=== PATIENT | male | born 1960 | race Caucasian/White ===

== ENCOUNTER 2016-08-06 17:06 | Observation (INO) | payer MEDICAID ==
[2016-08-06] MEDS ORDERED: LIDOCAINE 5% PATCH TOP ONE (17:26)
[2016-08-06] MEDS ORDERED: ONDANSETRON HCL IV 4 MG/2 ML VIAL IVP ONE (17:27)
--- NOTE | 2016-08-06 17:30 | Emergency Department Record ---
History of Present Illness - General Chief Complaint: Fall Injury Stated Complaint: FALL Source: Patient Mode of Arrival: Ambulatory Limitations: No limitations - History of Present Illness Initial Comments: 56 yo male presents to ED with a CC of left sided chest pain symptoms that began 3 days ago following a slip and fall while putting salt on his driveway. Patient reports that he coughed last night which significantly worsened his pain symptoms. Patient denies fevers, chills, or recent illness, and does not take anticoagulation medications other than baby aspirin daily. Patient does report a history of COPD. MD Complaint: Fall Onset/Timin -: Days(s) Fall From: Standing When Fall Occurred: # Days CLAIM AGENT Fall Witnessed: No Place Fall Occurred: Home Loss of Consciousness: None Prolonged Down Time?: Yes Symptoms Prior to Fall: None Location: Chest, Back Severity scale (1-10): 7 Quality: Sharp Context: Tripped/slipped Associated Symptoms: Other - [place] Coma Scale Eye Response: (4) Open spontaneously Motor Response: (6) Obeys commands Verbal Response: (5) Oriented [place] Total: 15 - Related Data Allergies Allergy/AdvReac Type Severity Reaction Status Date / Time hydrocodone bitartrate Allergy Severe ITCHING Verified 08/06/16 17:18 [From [place]] penicillin V Allergy Intermediate HIVES Verified 08/06/16 17:18 shellfish derived Allergy Intermediate HIVES Verified 08/06/16 17:18 bacitracin Allergy PT UNSURE Verified 08/06/16 17:18 [From Triple Antibiotic] OF REACTION bacitracin zinc Allergy PT UNSURE Verified 08/06/16 17:18 [From Triple Antibiotic] OF REACTION neomycin sulfate Allergy PT UNSURE Verified 08/06/16 17:18 [From Triple Antibiotic] OF REACTION polymyxin B Allergy PT UNSURE Verified 08/06/16 17:18 [From Triple Antibiotic] OF REACTION polymyxin B sulfate Allergy PT UNSURE Verified 08/06/16 17:18 [From Triple Antibiotic] OF REACTION Travel Screening - Travel/Exposure Within Last 30 Days Have you traveled within the last 30 days?: No - Travel/Exposure Within Last Year Have you traveled outside the [place] in the last year?: No - Additonal Travel Details Have you been exposed to anyone with a communicable illness?: No - Travel Symptoms Symptom Screening: None Review of Systems Constitutional: Denies: Chills, Fever, Malaise, Night sweats Eyes: Denies: Eye discharge, Eye pain ENT: Denies: Congestion, Ear pain, Epistaxis Respiratory: Reports: Cough. Denies: Dyspnea Cardiovascular: Reports: Chest pain (with deep inspiration). Denies: Palpitations, Paroxysmal nocturnal dyspnea Endocrine: Denies: Fatigue, Heat or cold intolerance Gastrointestinal: Denies: Abdominal pain, Nausea, Vomiting Genitourinary: Denies: Incontinence, Retention Musculoskeletal: Reports: Back pain. Denies: Arthralgia, Gout, Joint swelling Skin: Denies: Bruising, Change in color Neurological: Denies: Abnormal gait, Confusion, Headache, Tingling Psychiatric: Denies: Anxiety Hematological/Lymphatic: Denies: Anemia, Blood Clots Past Medical History - SOCIAL HISTORY Smoking Status: Current every day smoker Alcohol Use: Occassional Drug Use: None - RESPIRATORY Hx Respiratory Disorders: Yes Hx COPD: Yes - CARDIOVASCULAR Hx Cardio Disorders: No - NEURO Hx Neuro Disorders: No - GI Hx GI Disorders: No - Hx Genitourinary Disorders: No - ENDOCRINE Hx Endocrine Disorders: No - MUSCULOSKELETAL Hx Musculoskeletal Disorders: No - PSYCH Hx Psych Problems: No - HEMATOLOGY/ONCOLOGY Hx Hematology/Oncology Disorders: No Family Medical History Any Significant Family History?: No Physical Exam - General General Appearance: Alert, Oriented x3, Cooperative, Moderate distress Limitations: No limitations - Head Head exam: Atraumatic, Normocephalic, Normal inspection Head exam detail: negative: Abrasion, Contusion, Parisi's sign, General tenderness, Hematoma, Laceration - Eye Eye exam: Normal appearance. negative: Conjunctival injection, Periorbital swelling, Periorbital tenderness, Scleral icterus - ENT Ear exam: negative: Auricular hematoma, Auricular trauma Nasal Exam: negative: Active bleeding, Discharge, Dried blood, Foreign body Mouth exam: negative: Drooling, Laceration, Muffled voice, Tongue elevation - Neck Neck exam: Normal inspection. negative: Meningismus, Tenderness - Respiratory Respiratory exam: Normal lung sounds bilaterally, Chest wall tenderness (lef mid -lower lateral chest wall pain with palpation). negative: Respiratory distress , Rhonchi, Stridor, Wheezes - Cardiovascular Cardiovascular Exam: Regular rate, Normal rhythm, Normal heart sounds - GI/Abdominal GI/Abdominal exam: Soft. negative: Rebound, Rigid, Tenderness - Rectal Rectal exam: Deferred - exam: Deferred - Extremities Extremities exam: Normal inspection. negative: Calf tenderness, Pedal edema, Tenderness - Back Back exam: Denies: CVA tenderness (R), CVA tenderness (L) - Neurological Neurological exam: Alert, Normal gait, Oriented X3 - Psychiatric Psychiatric exam: Normal affect, Normal mood - Skin Skin exam: Normal color. negative: Abrasion Type of lesion: negative: abrasion Course Vital Signs 08/06/16 17:20 Temperature 97.5 F L Pulse Rate 81 Respiratory 18 Rate Blood Pressure 144/86 Pulse Ox 96 - Reevaluation(s) Reevaluation #1: 08/06/16 17:41 EKG: NSR 74 Normal axis, normal intervals No acute ST-T wave chagnes. Reevaluation #2: 08/06/16 18:45 Labs reviewed and are grossly unremarkable for an acute process. CT Chest: Non-displaced rib fractures left 9,10, and 11. Discussed outpatient vs. inpatient treatment with the patient and his significant other, patient feels that will not be able to control his pain symptoms and ADL given his injury at this time and history of moderate-severe COPD. Will discuss admission with Dr. Huddleston. Medical Decision Making - Lab Data Result diagrams: 08/06/16 17:49 08/06/16 17:49 Disposition Disposition: Admit Clinical Impression: Multiple rib fractures Qualifiers: Encounter type: initial encounter Fracture type: closed Laterality: left Qualified Code(s): S22.42XA - Multiple fractures of ribs, left side, initial encounter for closed fracture COPD (chronic obstructive pulmonary disease) Qualifiers: COPD type: unspecified COPD Qualified Code(s): J44.9 - Chronic obstructive pulmonary disease, unspecified Disposition: Still a Patient at [facility] Decision to Admit: Admit from ER Decision to Admit Date: 08/06/16 Decision to Admit Time: 18:50 Condition: (2) Stable Forms: Patient Portal Access
[2016-08-06 17:53] LABS: BASO % 0.5 % (0-6); EOS % 5.8 % (0-6); GRAN % 62.7 % (47-80); HEMATOCRIT 49.4 % (42.0-52.0); HEMOGLOBIN 17.1 gm/dl (14.0-18.0); LYMPH % 22.7 % (16-45); MEAN CELL VOLUME 86.4 fl (81-97); MEAN CORPUSCULAR HEMOGLOBIN 29.8 pg (27-33); MEAN CORPUSCULAR HGB CONC 34.6 g/dl (32-36); MEAN PLATELET VOLUME 9.9 fl (7.4-10.4); MONO % 8.3 % (0-9); PLATELET COUNT 292 K/uL (130-400); RED BLOOD COUNT 5.72 M/uL (4.40-5.70); RED CELL DISTRIBUTION WIDTH 13.2 % (11.5-14.5); WHITE BLOOD COUNT W/O DIFF 10.8 K/uL (4.2-12.2)
[2016-08-06 18:05] LABS: ALB/GLOB RATIO 1.7 (1.1-1.8); ALBUMIN 4.5 gm/dL (3.5-5.0); ALKALINE PHOSPHATASE 65 U/L (38-126); ALT/SGPT 46 U/L (21-72); ANION GAP 15.2 (7-16); AST/SGOT 27 U/L (17-59); BILIRUBIN,TOTAL 0.42 mg/dL (0.2-1.3); BLOOD UREA NITROGEN 14 mg/dL (9-20); CARBON DIOXIDE 20.8 mmol/L (22-30); CREATININE 0.8 mg/dL (0.66-1.25); EST GLOMERULAR FILTRATION RATE > 60 ml/min; GLUCOSE,RANDOM 106 mg/dL (70-110); TOTAL PROTEIN 7.2 gm/dL (6.3-8.2)
[2016-08-06] MEDS ORDERED: 0.9 % SODIUM CHLORIDE 1000ML 1,000 ML IV PRN (19:22)
[2016-08-06] MEDS ORDERED: ALBUTEROL SULFATE (0.083%) 2.5 MG/3 ML NEB INH PRN ×2 (19:22→20:40)
[2016-08-06] MEDS ORDERED: IPRATROPIUM/ALBUTEROL (0.5MG/3MG) NEB INH PRN (19:22)
[2016-08-06] MEDS ORDERED: OMEPRAZOLE MAGNESIUM 20 MG PO SCH (19:22)
[2016-08-06] MEDS ORDERED: UMECLIDINIUM BROMIDE IH SCH (19:22)
[2016-08-06] MEDS: MORPHINE SULFATE 5 MG/ML PFS IVP PRN ×2 (19:51→22:13)
[2016-08-06] MEDS: TRAMADOL HCL 50 MG TABLET PO PRN (20:31)
[2016-08-06] MEDS: MONTELUKAST SODIUM 10MG TABLET PO SCH (21:43)
[2016-08-06] MEDS: SYMBICORT INH SCH (21:43)
[2016-08-07] MEDS: MORPHINE SULFATE 5 MG/ML PFS IVP PRN ×5 (00:19→23:00)
[2016-08-07] MEDS: TRAMADOL HCL 50 MG TABLET PO PRN (02:29)
[2016-08-07] MEDS ORDERED: ALBUTEROL SULFATE (0.083%) 2.5 MG/3 ML NEB INH PRN (08:42)
[2016-08-07] MEDS ORDERED: HYDROXYZINE PAMOATE 25 MG CAPSULE PO PRN (08:47)
[2016-08-07] MEDS ORDERED: UMECLIDINIUM INH SCH (10:00)
[2016-08-07] MEDS: SYMBICORT INH SCH ×2 (10:09→22:15)
[2016-08-07] MEDS: LEVOFLOXACIN/D5W 750 MG in DEXTROSE 1 BAG IVPB SCH (10:12)
[2016-08-07] MEDS: ASPIRIN 81 MG TABEC PO SCH (10:15)
[2016-08-07] MEDS ORDERED: DIPHENHYDRAMINE HCL 25 MG CAPSULE PO PRN ×2 (11:26→11:30)
[2016-08-07] MEDS: PANTOPRAZOLE SODIUM 40 MG TABLET PO SCH (11:40)
[2016-08-07] MEDS: HYDROCODONE/APAP 10/325 TABLET PO SCH ×3 (15:02→23:00)
[2016-08-07] MEDS ORDERED: AL HYDROX/MAG HYDROX 30ML UD PO PRN (19:29)
--- NOTE | 2016-08-07 20:09 | History & Physical ---
History of Present Illness - Date of Service Date of Service for History & Physical: 08/07/16 - History of Present Illness Admitting Diagnosis: Multiple rib fractures. COPD History of Present Illness: 56 yo male with COPD, current everyday smoker (1ppd), and history of bilateral pneumothorax due to a past crush injury, presented to ED yesterday with a CC of left sided chest pain. His symptoms began 3 days ago following a slip and fall while putting salt on his driveway. Patient reports that he coughed last night which significantly worsened his pain symptoms and lead him to come to the ED for pain control. Patient denies fevers, chills, or recent illness, and does not take anticoagulation medications other than baby aspirin daily. Pmx: bilateral pneumothorax with left side requiring surgery, Other surgical history: right hand dupuytrens, left knee skin cancer removal In the ER, CT chest showed non-displaced rib fractures left 9,10, and 11. EKG was negative along with labwork (cbc, cmp). It was determined patient was unable to perform his ADLs with his current pain level so was admitted for pain management and to ensure patient did not obtain a pneumonia due to his COPD, hx of pneumothorax, and poor airation now due to his fractures. ER physican ordered tramaol and IV morphine PRN for pain management. PCP: Noy Benitez [facility] family practice [employer] Travel Screening - Travel/Exposure Within Last 30 Days Have you traveled within the last 30 days?: No - Travel/Exposure Within Last Year Have you traveled outside the [place] in the last year?: No - Additonal Travel Details Have you been exposed to anyone with a communicable illness?: No - Travel Symptoms Symptom Screening: None Review of Systems Constitutional: Denies: Chills, Fever, Malaise, Night sweats Eyes: Denies: Eye discharge, Eye pain ENT: Denies: Congestion, Ear pain, Epistaxis Respiratory: Reports: Cough. Denies: Dyspnea Cardiovascular: Reports: Chest pain (with deep inspiration). Denies: Palpitations, Paroxysmal nocturnal dyspnea Endocrine: Denies: Fatigue, Heat or cold intolerance Gastrointestinal: Denies: Abdominal pain, Nausea, Vomiting Genitourinary: Denies: Incontinence, Retention Musculoskeletal: Denies: Arthralgia, Back pain, Gout, Joint swelling Skin: Denies: Bruising, Change in color Neurological: Denies: Abnormal gait, Confusion, Headache, Tingling Psychiatric: Denies: Anxiety Hematological/Lymphatic: Denies: Anemia, Blood Clots Past Medical History - SOCIAL HISTORY Smoking Status: Current every day smoker Alcohol Use: Occassional Alcohol Use Comment: last beer was two weeks ago Drug Use: None - RESPIRATORY Hx Respiratory Disorders: Yes Hx COPD: Yes - CARDIOVASCULAR Hx Cardio Disorders: No - NEURO Hx Neuro Disorders: No - GI Hx GI Disorders: No - Hx Genitourinary Disorders: No - ENDOCRINE Hx Endocrine Disorders: No - MUSCULOSKELETAL Hx Musculoskeletal Disorders: No - PSYCH Hx Psych Problems: No - HEMATOLOGY/ONCOLOGY Hx Hematology/Oncology Disorders: No Hx Cancer: Yes (skin cancer on left knee) Family Medical History Any Significant Family History?: No Hx Cancer: Father H&P Meds/Allergies - Allergies Allergies: Allergies Allergy/AdvReac Type Severity Reaction Status Date / Time hydrocodone bitartrate Allergy Severe ITCHING Verified 08/06/16 17:18 [From [place]] penicillin V Allergy Intermediate HIVES Verified 08/06/16 17:18 shellfish derived Allergy Intermediate HIVES Verified 08/06/16 17:18 bacitracin Allergy PT UNSURE Verified 08/06/16 17:18 [From Triple Antibiotic] OF REACTION bacitracin zinc Allergy PT UNSURE Verified 08/06/16 17:18 [From Triple Antibiotic] OF REACTION neomycin sulfate Allergy PT UNSURE Verified 08/06/16 17:18 [From Triple Antibiotic] OF REACTION polymyxin B Allergy PT UNSURE Verified 08/06/16 17:18 [From Triple Antibiotic] OF REACTION polymyxin B sulfate Allergy PT UNSURE Verified 08/06/16 17:18 [From Triple Antibiotic] OF REACTION - Home Medications Home Medications Medication Instructions Recorded Confirmed Last Taken Cholecalciferol (Vitamin D3) 5,000 unit PO WEEKLY 08/06/16 08/06/16 Unknown [Vitamin D3] - Active Medications Active Medications: Current Medications Acetaminophen/Hydrocodone Bitart ([place] 10mg/325mg) 1 each PO Q6H ASTON Last Admin: 08/07/16 19:10 Dose: 1 each Al Hydroxide/Mg Hydroxide (Maalox) 30 ml PO Q4H PRN PRN Reason: GI UPSET Albuterol Sulfate () 2.5 mg INH Q4H PRN PRN Reason: DIFFICULTY IN BREATHING Albuterol/Ipratropium (Duoneb) 3 ml INH RESP.Q4H PRN PRN Reason: Wheezing Aspirin (Ecotrin (Ec)) 81 mg PO DAILY [facility] Last Admin: 08/07/16 10:15 Dose: 81 mg Diphenhydramine HCl (Benadryl Capsule) 25 mg PO Q6H PRN PRN Reason: ITCHING Diphenhydramine HCl (Benadryl Capsule) 50 mg PO Q6H PRN PRN Reason: ITCHING Famotidine (Pepcid) 20 mg PO DAILY [facility] Hydroxyzine Pamoate (Vistaril) 25 mg PO QID PRN PRN Reason: ITCHING Last Admin: 08/07/16 10:14 Dose: 25 mg Sodium Chloride () 1,000 mls @ 15 mls/hr IV .Q24H PRN PRN Reason: LARGE VOLUME IV Last Admin: 08/07/16 10:13 Dose: 15 mls/hr Levofloxacin/Dextrose 750 mg/ (Glucose) 150 mls @ 125 mls/hr IVPB DAILY [facility] Stop: 08/12/16 10:01 Last Admin: 08/07/16 10:12 Dose: 125 mls/hr Montelukast Sodium (Singulair) 10 mg PO QHS [facility] Last Admin: 08/06/16 21:43 Dose: Not Given Morphine Sulfate (Morphine Sulfate) 5 mg IVP Q2H PRN PRN Reason: Pain - Moderate (5-7) Stop: 08/13/16 19:23 Last Admin: 08/07/16 10:13 Dose: 5 mg Pantoprazole Sodium (Protonix) 40 mg PO DAILYAC [facility] Last Admin: 08/07/16 11:40 Dose: 40 mg Patient Own Med: (Symbicort 160/4.5 Mg) 2 each INH BID [facility] Last Admin: 08/07/16 10:09 Dose: Not Given Patient Own Med: (Incruze Elipta) 1 each INH DAILY [facility] Tramadol HCl (Ultram) 50 mg PO Q6H PRN PRN Reason: Pain - Moderate (5-7) Last Admin: 08/07/16 02:29 Dose: 50 mg Physical Exam - Vital Signs Vital Signs: Vital Signs - Last 24 Hrs Temp Pulse Pulse Resp BP Pulse Ox 08/07/16 10:00 96 08/07/16 09:00 76 20 08/07/16 08:21 97.8 F 76 20 112/67 90 L 08/07/16 05:31 95 08/07/16 05:28 92 L 08/07/16 05:22 98.5 F 74 16 115/72 91 L 08/07/16 03:05 76 16 95 08/06/16 20:20 80 93 L - General General Appearance: Alert, Oriented x3, Cooperative, Mild distress Limitations: No limitations - Head Head exam: Atraumatic, Normocephalic, Normal inspection Head exam detail: negative: Abrasion, Contusion, Parisi's sign, General tenderness, Hematoma, Laceration - Eye Eye exam: Normal appearance. negative: Conjunctival injection, Periorbital swelling, Periorbital tenderness, Scleral icterus - ENT Ear exam: negative: Auricular hematoma, Auricular trauma Nasal Exam: negative: Active bleeding, Discharge, Dried blood, Foreign body Mouth exam: negative: Drooling, Laceration, Muffled voice, Tongue elevation - Neck Neck exam: Normal inspection. negative: Meningismus, Tenderness - Respiratory Respiratory exam: Normal lung sounds bilaterally, Chest wall tenderness (lef mid -lower lateral chest wall pain with palpation). negative: Respiratory distress , Rhonchi, Stridor, Wheezes - Cardiovascular Cardiovascular Exam: Regular rate, Normal rhythm, Normal heart sounds - GI/Abdominal GI/Abdominal exam: Soft. negative: Rebound, Rigid, Tenderness - Rectal Rectal exam: Deferred - exam: Deferred - Extremities Extremities exam: Normal inspection. negative: Calf tenderness, Pedal edema, Tenderness - Back Back exam: Denies: CVA tenderness (R), CVA tenderness (L) - Neurological Neurological exam: Alert, Normal gait, Oriented X3 - Psychiatric Psychiatric exam: Normal affect, Normal mood - Skin Skin exam: Normal color. negative: Abrasion Type of lesion: negative: abrasion Results - Labs Result Diagrams: 08/06/16 17:49 08/06/16 17:49 VTE H&P Assessment - Risk for VTE Risk for VTE: Yes Risk Level: High Risk Assessment Date: 08/07/16 Risk Assessment Time: 20:23 VTE Orders Placed or Will Be Placed: Yes Plan - Detailed Diagnosis and Plan (1) Multiple rib fractures Current Visit: Yes Status: Acute Qualifiers: Encounter type: initial encounter Fracture type: closed Laterality : left Qualified Code(s): S22.42XA - Multiple fractures of ribs, left side, initial encounter for closed fracture Base Code: S22.49XA - MULTIPLE FRACTURES OF RIBS, UNSP SIDE, INIT FOR CLOS FX Comment: 08/07- will attempt to manage patient's pain with [place] 10mg, with IV morpine at [place] if needed. if patient is requiring IV morphine on a regular basis will consider pain management referrel with Dr. Angela who will be in on . Will have respiratory teach on ISS and benefits of deep breathing. I explained in sme detail overall goal of preventing pneumonia and encouraged to use this event as jump start to quit smoking. Will intiate Levaquin for PNA prophylaxis since patient also has comobid COPD (2) COPD (chronic obstructive pulmonary disease) Current Visit: Yes Status: Chronic Qualifiers: COPD type: unspecified COPD Qualified Code(s): J44.9 - Chronic obstructive pulmonary disease, unspecified Base Code: J44.9 - CHRONIC OBSTRUCTIVE PULMONARY DISEASE, UNSPECIFIED Comment: 08/07- will continue home medications (albuterol, symbicort, monolukast) , but will also add advair. Will encourage ISS as noted above (3) Smoking Current Visit: Yes Status: Acute Base Code: F17.200 - NICOTINE DEPENDENCE, UNSPECIFIED, UNCOMPLICATED Comment: 08/07 discussed with patient and will order nicotine patch at 21mg dose. Encouragd quitting but patient in precontemplative stages (4) DVT prophylaxis Current Visit: Yes Status: Acute Base Code: [id number] - Comment: lovenox 40mg/day (5) Full code status Current Visit: Yes Status: Acute Base Code: Z78.9 - OTHER SPECIFIED HEALTH STATUS
[2016-08-07] MEDS ORDERED: NICOTINE 21 MG/24 HOUR PATCH TD SCH (20:30)
[2016-08-07] MEDS: MONTELUKAST SODIUM 10MG TABLET PO SCH (22:54)
[2016-08-07] MEDS: ENOXAPARIN 40 MG/0.4 ML SYR SC SCH (22:54)
[2016-08-08] MEDS ORDERED: FLUTICASONE/SALMETEROL 250/50 DISKUS INH SCH (06:00)
[2016-08-08] MEDS: HYDROCODONE/APAP 10/325 TABLET PO SCH ×2 (06:43→10:53)
[2016-08-08] MEDS: PANTOPRAZOLE SODIUM 40 MG TABLET PO SCH (06:44)
[2016-08-08] MEDS ORDERED: FAMOTIDINE 20MG TABLET PO SCH (10:00)
[2016-08-08] MEDS: SYMBICORT INH SCH (10:09)
[2016-08-08] MEDS: LEVOFLOXACIN/D5W 750 MG in DEXTROSE 1 BAG IVPB SCH (10:53)
[2016-08-08] MEDS: ASPIRIN 81 MG TABEC PO SCH (10:53)
[2016-08-08] MEDS: ENOXAPARIN 40 MG/0.4 ML SYR SC SCH (10:54)
--- NOTE | 2016-08-08 11:22 | Discharge Summary ---
Providers Discharge Summary Date: 08/08/16 Date of admission: 08/06/16 19:24 Expected Date of Discharge: 08/08/16 Attending physician: JEZ PARISI Primary care physician: Claudia Freeman N.P. Physical Exam - Vital Signs Vital Signs: Vital Signs - Last 24 Hrs Temp Pulse Pulse Resp BP Pulse Ox 08/08/16 10:11 90 18 90 L 08/08/16 09:00 82 18 08/08/16 08:00 97.9 F 82 18 121/78 90 L 08/08/16 00:12 98.9 F 85 18 106/68 90 L 08/07/16 22:40 88 93 L 08/07/16 22:15 84 20 94 L 08/07/16 22:10 80 20 94 L 08/07/16 22:05 86 88 L 08/07/16 21:00 84 - General General Appearance: Alert, Oriented x3, Cooperative, No acute distress Limitations: No limitations - Head Head exam: Atraumatic, Normocephalic, Normal inspection Head exam detail: negative: Abrasion, Contusion, Parisi's sign, General tenderness, Hematoma, Laceration - Eye Eye exam: Normal appearance. negative: Conjunctival injection, Periorbital swelling, Periorbital tenderness, Scleral icterus - ENT Ear exam: negative: Auricular hematoma, Auricular trauma Nasal Exam: negative: Active bleeding, Discharge, Dried blood, Foreign body Mouth exam: negative: Drooling, Laceration, Muffled voice, Tongue elevation - Neck Neck exam: Normal inspection. negative: Meningismus, Tenderness - Respiratory Respiratory exam: Normal lung sounds bilaterally (diminished), Chest wall tenderness (lef mid-lower lateral chest wall pain with palpation). negative: Respiratory distress, Rhonchi, Stridor, Wheezes - Cardiovascular Cardiovascular Exam: Regular rate, Normal rhythm, Normal heart sounds - GI/Abdominal GI/Abdominal exam: Soft. negative: Rebound, Rigid, Tenderness - Rectal Rectal exam: Deferred - exam: Deferred - Extremities Extremities exam: Normal inspection. negative: Calf tenderness, Pedal edema, Tenderness - Back Back exam: Denies: CVA tenderness (R), CVA tenderness (L) - Neurological Neurological exam: Alert, Normal gait, Oriented X3 - Psychiatric Psychiatric exam: Normal affect, Normal mood - Skin Skin exam: Normal color. negative: Abrasion Type of lesion: negative: abrasion Hospitalization - Hospitalization Admission Diagnosis: Multiple rib fractures. COPD - Problem List/Discharge Diagnosis (1) Multiple rib fractures Current Visit: Yes Status: Acute Discharge Diagnosis: Encounter type: initial encounter Fracture type: closed Laterality : left Qualified Code(s): S22.42XA - Multiple fractures of ribs, left side, initial encounter for closed fracture Base Code: S22.49XA - MULTIPLE FRACTURES OF RIBS, UNSP SIDE, INIT FOR CLOS FX Comment: 08/08/16: Patient's pain well controlled with [place] 10/325 q 6-8 hours as needed for pain. Patient is tolerating ambulation. Pain referral to Dr. Angela placed as outpatient. Will have respiratory teach on ISS and benefits of deep breathing. I explained in detail overall goal of preventing pneumonia and encouraged to use this event as jump start to quit smoking. He will complete five days of Levaquin for PNA prophylaxis since patient also has comobid COPD. VS's stable. Lung exam essentially normal. Home O2 qualifier prior to D/C- patient qualified for 2 L's of O2 at night and 3 L's w/ exertion. leonard, our resp therapist, is setting this up for patient. Use of Insentive spirometry at home encouraged. Continue COPD medications. Follow up with PCP, Claudia Freeman at 11:40. He agree's to return sooner re any new or worsening symptoms. (2) Smoking Current Visit: Yes Status: Acute Base Code: F17.200 - NICOTINE DEPENDENCE, UNSPECIFIED, UNCOMPLICATED Comment: 08/08/16: patient in precontemplative stages. discuss further with PCP during follow up visit. (3) COPD (chronic obstructive pulmonary disease) Current Visit: Yes Status: Chronic Discharge Diagnosis: COPD type: unspecified COPD Qualified Code(s): J44.9 - Chronic obstructive pulmonary disease, unspecified Base Code: J44.9 - CHRONIC OBSTRUCTIVE PULMONARY DISEASE, UNSPECIFIED Comment: 08/08/16: will continue home medications (albuterol, symbicort, monolukast, incluse). Will encourage ISS as noted above (4) Full code status Current Visit: Yes Status: Acute Base Code: Z78.9 - OTHER SPECIFIED HEALTH STATUS Comment: 08/08/16: patient remained full code during his stay. - Hospitalization Course Disposition: Home, Self-Care Hospital Course: 56 yo male with COPD, current everyday smoker (1ppd), and history of bilateral pneumothorax due to a past crush injury, presented to ED yesterday with a CC of left sided chest pain. His symptoms began 3 days ago following a slip and fall while putting salt on his driveway. Patient reports that he coughed last night which significantly worsened his pain symptoms and lead him to come to the ED for pain control. Patient denies fevers, chills, or recent illness, and does not take anticoagulation medications other than baby aspirin daily. Pmx: bilateral pneumothorax with left side requiring surgery, Other surgical history: right hand dupuytrens, left knee skin cancer removal In the ER, CT chest showed non-displaced rib fractures left 9,10, and 11. EKG was negative along with labwork (cbc, cmp). It was determined patient was unable to perform his ADLs with his current pain level so was admitted for pain management and to ensure patient did not obtain a pneumonia due to his COPD, hx of pneumothorax, and poor airation now due to his fractures. ER physican ordered tramaol and IV morphine PRN for pain management. PCP: Claudia Freeman [facility] family practice [employer] 08/08/16: pt sitting up in chair comfortably. He denies any pain if he's lying still. No sob, JANICE. Patient tolerating PO pain control however did have IV pain medication last night. The plan was that patient admitted for pain control and Dr. Angela consulted to see patient while admitted. Unfortunately, Dr. Angela is not available to consult though he will see patient as an outpatient. Patient denies any other concerns at this time. He's interested in going home, if possible. I was able to get him a f/up appt with Claudia Freeman, his PCP, tomorrow. Will placed Dr. Angela referral through [facility]. Procedures: Cardiology Procedures 08/07/16 09:45 EKG NOW Condition at Discharge: (2) Stable Discharge Medications - Discharge Medications Prescriptions: Levofloxacin [Levaquin Tab] 500 mg PO DAILY 4 Days Hydrocodone/Acetaminophen [[place] 10mg/325mg] 1 tab PO Q6H PRN #20 tab PRN Reason: Pain - General Home Medications: Ambulatory Orders Cholecalciferol (Vitamin D3) [Vitamin D3] 5,000 unit PO WEEKLY 08/06/16 [Last Taken Unknown] Hydrocodone/Acetaminophen [[place] 10mg/325mg] 1 tab PO Q6H PRN #20 tab 08/08/16 [ Last Taken Unknown] Levofloxacin [Levaquin Tab] 500 mg PO DAILY 4 Days 08/08/16 [Last Taken Unknown] Discharge Plan - Discharge Instructions Activity at Discharge: Increase Activity as Tolerated Diet at Discharge: Regular Diet Additional Instructions: FOLLOW UP WITH PCP CLAUDIA FEREMAN 08/08/16 @11:40 AM
== END 2016-08-08 16:25 | disposition home or self-care (01) ==
LOC: ER 17:06 → MEDSURG 19:24
PROVIDERS: ADMIT Family Medicine; ATTEND Family Medicine
DX: S22.42XA Multiple fractures of ribs, left side, initial encounter for closed fracture (principal); J44.9 Chronic obstructive pulmonary disease, unspecified; F17.200 Nicotine dependence, unspecified, uncomplicated; Z78.9 Other specified health status; W01.198A Fall on same level from slipping, tripping and stumbling with subsequent striking against other object, initial encounter; Y93.89 Activity, other specified; Y92.014 Private driveway to single-family (private) house as the place of occurrence of the external cause
CPT/HCPCS: 99285 ×2; 85025; 80053; 71250; 94640 ×2; 94620; 94010; 94761; 94760; 93005 ×2; 93010 ×2; G0378 ×3; J2405; J1956 ×2; J3490 ×3; J2270 ×2; 99217; 99220; J1650

== ENCOUNTER 2019-08-07 14:21 | Emergency (ER) | payer MEDICAID ==
--- NOTE | 2019-08-07 14:40 | Emergency Department Record ---
History of Present Illness - General Chief Complaint: Back Pain/Injury Stated Complaint: BACK PAIN Time Seen by Provider: 08/07/19 14:32 Source: Patient Mode of Arrival: Ambulatory Limitations: No limitations - History of Present Illness Initial Comments: The patient is here due to worsening of his chronic back pain for 5 days. The patient has a long hx of chronic pain similar to this and has recently had shots in his low back. He was doing better but then shoveled snow 5 days ago and since the pain has slowly worsened in his low back. There is no radiation of the pain down the legs and no leg numbness, weakness, or any bowel or bladder issues. Also the patient denies any fever, chills, AP or CP. The pain is much worse with movement and twisting. MD Complaint: Back pain Onset/Timin -: Days(s) Similar Symptoms Previously: Yes Place: Home Severity scale (1-10): 9 Treatments Prior to Arrival: Cold therapy, Heat therapy, NSAIDS - Related Data Previous Rx's Medication Instructions Recorded Cyclobenzaprine HCl [Flexeril] 10 mg PO TID PRN #20 tablet 08/07/19 Allergies Allergy/AdvReac Type Severity Reaction Status Date / Time penicillin V Allergy Intermediate HIVES Unverified 05/19/19 07:20 shellfish derived Allergy Intermediate HIVES Unverified 05/19/19 07:20 bacitracin Allergy PT UNSURE Unverified 05/19/19 07:20 [From Triple Antibiotic] OF REACTION bacitracin zinc Allergy PT UNSURE Unverified 05/19/19 07:20 [From Triple Antibiotic] OF REACTION neomycin sulfate Allergy PT UNSURE Unverified 05/19/19 07:20 [From Triple Antibiotic] OF REACTION polymyxin B Allergy PT UNSURE Unverified 05/19/19 07:20 [From Triple Antibiotic] OF REACTION polymyxin B sulfate Allergy PT UNSURE Unverified 05/19/19 07:20 [From Triple Antibiotic] OF REACTION albuterol sulfate AdvReac Severe lungs and Unverified 05/19/19 07:20 [From ProAir HFA] throat burning gabapentin AdvReac Mild Unverified 05/19/19 07:20 Travel Screening - Travel/Exposure Within Last 30 Days Have you traveled within the last 30 days?: No - Travel/Exposure Within Last Year Have you traveled outside the [place] in the last year?: No - Additonal Travel Details Have you been exposed to anyone with a communicable illness?: No - Travel Symptoms Symptom Screening: None Review of Systems Constitutional: Denies: Chills, Fever Eyes: Denies: Eye discharge ENT: Denies: Congestion Respiratory: Denies: Cough, Dyspnea Cardiovascular: Denies: Chest pain Past Medical History - SOCIAL HISTORY Smoking Status: Current every day smoker Alcohol Use: Heavy - RESPIRATORY Hx Respiratory Disorders: Yes Hx COPD: Yes - CARDIOVASCULAR Hx Cardio Disorders: No - NEURO Hx Neuro Disorders: No - GI Hx GI Disorders: No - Hx Genitourinary Disorders: No - ENDOCRINE Hx Endocrine Disorders: No - MUSCULOSKELETAL Hx Musculoskeletal Disorders: No - PSYCH Hx Psych Problems: No - HEMATOLOGY/ONCOLOGY Hx Hematology/Oncology Disorders: No Hx Cancer: Yes (skin cancer on left knee) Family Medical History Any Significant Family History?: No Hx Cancer: Father Physical Exam - General General Appearance: Alert, Oriented x3, Cooperative, No acute distress - Head Head exam: Atraumatic, Normocephalic, Normal inspection - Eye Eye exam: Normal appearance, PERRL - ENT Throat exam: Normal inspection. negative: Tonsillar erythema, Tonsillar exudate - Neck Neck exam: Normal inspection, Full ROM. negative: Tenderness - Respiratory Respiratory exam: Normal lung sounds bilaterally. negative: Respiratory distress - Cardiovascular Cardiovascular Exam: Regular rate, Normal rhythm, Normal heart sounds - GI/Abdominal GI/Abdominal exam: Soft, Normal bowel sounds. negative: Tenderness - Extremities Extremities exam: Normal inspection, Full ROM, Normal capillary refill. negative: Tenderness - Back Back exam: Reports: Normal inspection. Denies: Paraspinal tenderness, Vertebral tenderness - Neurological Neurological exam: Alert, Normal gait, Oriented X3, Reflexes normal. negative: Abnormal gait, Altered, Motor sensory deficit - Skin Skin exam: negative: Rash Course Vital Signs 08/07/19 14:25 Temperature 97.8 F Pulse Rate 83 Respiratory 16 Rate Blood Pressure 149/94 Pulse Ox 96 - Reevaluation(s) Reevaluation #1: The patient is doing much better at this time. His pain is much improved and he is ready for home. 08/07/19 15:13 Disposition Disposition: Discharge Clinical Impression: Chronic back pain Qualifiers: Back pain location: back pain in unspecified location Back pain laterality: unspecified Qualified Code(s): M54.9 - Dorsalgia, unspecified Disposition: Home, Self-Care Condition: (2) Stable Instructions: Chronic Back Pain (ED) Additional Instructions: Please continue your regular medicines and add the Flexeril for pain. Please see your pain specialists next week for recheck and return to the ER for any worsening pain, leg numbness, weakness, or any bowel or bladder issues. Prescriptions: Cyclobenzaprine HCl [Flexeril] 10 mg PO TID PRN #20 tablet PRN Reason: Pain Forms: Patient Portal Access Time of Disposition: 15:15 Quality - Quality Measures Quality Measures: N/A - Blood Pressure Screening View Details: Yes Does Patient Have Any of the Following: No Blood Pressure Classification: Hypertensive Reading Systolic Measurement: 149 Diastolic Measurement: 94 Screening for High Blood Pressure: < First Hypertensive BP, F/U Documented > [[id number]] First Hypertensive Follow-up Interventions: Referral to alternative/primary care provider.
[2019-08-07] MEDS: ORPHENADRINE CITRATE 60MG/2ML VIAL IM ONE (14:49)
[2019-08-07] MEDS: KETOROLAC 30 MG/ML VIAL IM ONE (14:49)
== END 2019-08-07 15:22 | disposition home or self-care (01) ==
LOC: ER 14:21
DX: G89.29 Other chronic pain (principal); M54.5 Low back pain; J44.9 Chronic obstructive pulmonary disease, unspecified; F17.210 Nicotine dependence, cigarettes, uncomplicated; X50.0XXA Overexertion from strenuous movement or load, initial encounter; Y93.H1 Activity, digging, shoveling and raking
CPT/HCPCS: 96372; 99284; J1885; J2360